=== PATIENT | female | born 1990 | race Caucasian/White ===

== ENCOUNTER 2023-04-30 10:09 | Outpatient (CLI) | payer BC ==
[2023-04-30] MEDS ORDERED: LACTATED RINGERS 1,000 ML IV SCH (11:15)
[2023-04-30 12:52] LABS: Appearance,Urine Clear (Clear); Bilirubin,Urine Negative (Negative); Blood,Urine Negative (Negative); Color,Urine Yellow; Glucose,Urine (UA) Negative (Negative); Ketones,Urine Negative (Negative); Leukocyte Esterase,Urine Small (Negative); Nitrite,Urine Negative (Negative); PH, Urine 7.5 (5.0-8.0); Protein,Urine Negative (Negative); RBC,Urine <1 /hpf (0-5); Specific Gravity,Urine 1.008 (1.001-1.035); Squamous Epithelial Cell,Urine 1 /hpf (0-4); Urobilinogen,Urine <2.0 mg/dL (<2.0); WBC,Urine 2 /hpf (0-5)
[2023-04-30 14:37] VITALS: BP 121/77; PULSE 92; RESP 16; TEMP 98.4
--- NOTE | 2023-05-01 13:25 | P.MSEPDOC ---
Presenting Problems - Arrival Data Date of Arrival on Unit: 04/30/23 Time of Arrival on Unit: 10:09 Mode of Transport: Ambulatory - Complaint OB-Reason for Admission/Chief Complaint: Possible Onset of Labor, Pain Comment: abdominal pain Medical History - Information : 1 Para: 0 Term: 0 : 0 Abortions: Spontaneous or Elective: 0 Number of Living Children: 0 - Gestational Age Gestational Age by TAHMINA (wks/days): 33 Weeks and 2 Days Review of Systems - Review of Systems Constitutional: No problems Breast: No problems ENT: No problems Cardiovascular: No problems Respiratory: No problems Gastrointestinal: No problems Genitourinary: No problems Musculoskeletal: No problems Neurological: No problems Skin: No problems Vital Signs - Temperature Temperature: 98.4 F Temperature Source: Temporal Artery Scan - Pulse Brachial Pulse Rate: 92 Pulse Assessment Method: Automatic Cuff - Respirations Respiratory Rate: 16 Oxygen Delivery Method: Room Air O2 Sat by Pulse Oximetry: 96 - Blood Pressure Right Arm Blood Pressure: 121/77 Blood Pressure Mean: 91 Blood Pressure Source: Automatic Cuff Medical Screen Scoring - Cervical Exam Dilation (cm): 0 Effacement (%): 0 Station: -4 Membranes: Intact - Uterine Contractions Frequency From (mins): 3 Frequency To (mins): 9 Duration From (seconds): 40 Duration To (seconds): 90 Intensity: Mild Resting: Soft to palpation - Assessment - Baby A Baseline FHR: 130 Heart Rate - NICHD Category: Category I (Normal) NST: Reactive Physician Notification - Physician Notified Physician Notified Date: 04/30/23 Physician Notified Time: 13:10 Physician: Eliz Flores New Order Received: Yes (discharge on pelvic rest and oral hydration) Maternal Triage Index - Urgent/Priority 2 Urgent Priority 2: Yes Provider Notified: Eliz Flores Provider Notified Time: 11:09 Criteria Met for Priority 2: less than 34 weeks contractions Disposition - Disposition OB Disposition: Triage, Discharge to home, Written follow up instructions reviewed Discharge Date: 04/30/23 Discharge Time: 13:15 I agree with the RN Medical Screening Exam: Yes Case reviewed; plan agreed upon as documented in EMR&OBIX.: Yes Diagnosis: FALSE LABOR BEFORE 37 COMPLETED WEEKS OF GEST, THIRD TRI
== END 2023-04-30 13:15 ==
LOC: FBPOP 10:09
PROVIDERS: ATTEND Obstetrics & Gynecology
DX: O47.03 False labor before 37 completed weeks of gestation, third trimester (principal); R10.84 Generalized abdominal pain; Z3A.33 33 weeks gestation of pregnancy
CPT/HCPCS: 59025; 81001; 82731; 96360; 96361; 99214

== ENCOUNTER 2023-05-21 16:20 | Outpatient (CLI) | payer BC ==
[2023-05-21 17:42] VITALS: BP 137/86; PULSE 109; RESP 18; TEMP 98.4
--- NOTE | 2023-05-21 20:20 | US ---
EXAMINATION TYPE: US OB limited DATE OF EXAM: 05/21/2023 COMPARISON: NONE CLINICAL INDICATION: Female, 32 years old with history of ISSAC; ISSAC EXAM PERFORMED: Transabdominal (TA) GESTATIONAL AGE / DATING Physician Established: (36 weeks/2 days) EDC: 06/16/2023 No growth performed on today?s study per ordering physician SURVEY ? ISSAC: 9.89 cm Ultrasound evidence of premature rupture of membranes? No (Tech?if abnormal transabdominally?image transvaginally to substantiate abnormality.) PRESENTATION: Vertex HEART RATE: 158 bpm RHYTHM: Normal IMPRESSION: 1. Limited evaluation. Fetus is in the cephalic presentation with cardiac activity measures 158 bpm. 2. ISSAC measures 9.89 centimeters
--- NOTE | 2023-05-22 09:47 | P.MSEPDOC ---
Presenting Problems - Arrival Data Date of Arrival on Unit: 05/21/23 Time of Arrival on Unit: 16:20 Mode of Transport: Portable - Complaint OB-Reason for Admission/Chief Complaint: Rule Out SROM Comment: 1554, clear gush of fluid Medical History - Information : 1 Para: 0 - Gestational Age Gestational Age by TAHMINA (wks/days): 36 Weeks and 2 Days Review of Systems - Review of Systems Constitutional: No problems Breast: No problems ENT: No problems Cardiovascular: No problems Respiratory: No problems Gastrointestinal: No problems Genitourinary: No problems Musculoskeletal: No problems Neurological: No problems Skin: No problems Vital Signs - Temperature Temperature: 98.4 F Temperature Source: Temporal Artery Scan - Pulse Pulse Oximetery Pulse Rate: 109 Pulse Assessment Method: Pulse Oximetry - Respirations Respiratory Rate: 18 Oxygen Delivery Method: Room Air - Blood Pressure Right Arm Blood Pressure: 137/86 Blood Pressure Mean: 103 Blood Pressure Source: Automatic Cuff Medical Screen Scoring - Cervical Exam Dilation (cm): 0.5 Effacement (%): 0 Membranes: Intact - Assessment - Baby A Baseline FHR: 140 Heart Rate - NICHD Category: Category I (Normal) NST: Reactive Physician Notification - Physician Notified Physician Notified Date: 05/21/23 Physician Notified Time: 17:10 Physician: Gayle Alcala - Notification Comment Comment: Spoke on the phone with Dr. Alcala about pt gush of clear fluid at 1554 and negative amnisure results. D/C orders given Maternal Triage Index - Maternal Triage Index Presenting for scheduled procedure w/no complaint: No - Stat/Priority 1 Stat Priority 1: No - Urgent/Priority 2 Urgent Priority 2: No - Prompt/Priority 3 Prompt Priority 3: Yes Criteria Met for Priority 3: Pt 36 2/7 C/o SROM Disposition - Disposition OB Disposition: Discharge to home, Written follow up instructions reviewed I agree with the RN Medical Screening Exam: Yes Case reviewed; plan agreed upon as documented in EMR&OBIX.: Yes Diagnosis: FALSE LABOR AT OR AFTER 37 COMPLETED WEEKS OF GESTATION
== END 2023-05-21 18:40 | disposition home or self-care (01) ==
LOC: FBPOP 16:20
PROVIDERS: ATTEND Obstetrics & Gynecology
DX: O47.1 False labor at or after 37 completed weeks of gestation (principal); Z3A.36 36 weeks gestation of pregnancy
CPT/HCPCS: 59025; 76815; 84112; 99213

== ENCOUNTER 2023-06-08 09:40 | Inpatient (IN) | payer BC ==
[2023-06-08] MEDS ORDERED: LIDOCAINE 0.5% (PF) 5 MG/ML (50 ML SDV) SQ PRN (10:10)
[2023-06-08] MEDS ORDERED: CARBOPROST TROMETHAMINE 250 MCG/ML 1 ML AMP IM PRN (10:10)
[2023-06-08] MEDS ORDERED: miSOPROStoL 200 MCG TAB PO PRN (10:10)
[2023-06-08] MEDS ORDERED: TRANEXAMIC 1,000 MG/100ML-NACL 1,000 MG in EMPTY BAG 1 BAG IV PRN (10:10)
[2023-06-08] MEDS ORDERED: METHYLERGONOVINE 0.2 MG/ML 1 ML AMP IM PRN (10:10)
[2023-06-08] MEDS ORDERED: TERBUTALINE 1 MG/ML VIAL SQ PRN (10:10)
[2023-06-08] MEDS ORDERED: OXYTOCIN 10 UNIT/ML 1 ML VIAL IM PRN (10:10)
[2023-06-08] MEDS ORDERED: OXYTOCIN 30 UNITS/500 ML NS 30 UNIT in SALINE 1 500ML.BAG IV SCH (10:15)
[2023-06-08] MEDS: LACTATED RINGERS 1,000 ML IV SCH ×4 (10:19→18:21)
[2023-06-08 10:29] LABS: Basophils % (A) 0 %; Eosinophils # (A) 0.2 k/uL (0-0.7); Eosinophils % (A) 2 %; HGB 14.2 gm/dL (11.4-16.0); Lymphocytes # (A) 1.9 k/uL (1.0-4.8); Lymphocytes % (A) 17 %; MCH 28.8 pg (25.0-35.0); MCHC 33.8 g/dL (31.0-37.0); MCV 85.3 fL (80.0-100.0); Mean Platelet Volume 7.8; Monocytes # (A) 0.5 k/uL (0-1.0); Monocytes % (A) 5 %; Neutrophils # (A) 8.6 k/uL (1.3-7.7); Neutrophils % (A) 76 %; Platelet Count 268 k/uL (150-450); RBC 4.92 m/uL (3.80-5.40); RDW 14.2 % (11.5-15.5); WBC 11.4 k/uL (3.8-10.6)
[2023-06-08 10:37] LABS: ALT 19 U/L (4-34); AST 28 U/L (14-36); African American GFR (CKD) >90 (>60 ml/min/1.73 sqM); Blood Urea Nitrogen 5 mg/dL (7-17); Non-African American GFR(CKD) >90 (>60 ml/min/1.73 sqM); Uric Acid 5.7 mg/dL (3.7-7.4)
[2023-06-08 10:44] LABS: Amorphous Sediment,Urine Rare /hpf; Appearance,Urine Clear (Clear); Bilirubin,Urine Negative (Negative); Blood,Urine Large (Negative); Color,Urine Yellow; Creatinine,Urine Random 73.9 mg/dL; Glucose,Urine (UA) Negative (Negative); Granular Casts,Urine 1 /lpf (0); Ketones,Urine Negative (Negative); Leukocyte Esterase,Urine Large (Negative); Mucus,Urine Rare /hpf; Nitrite,Urine Negative (Negative); Protein,Urine Trace (Negative); Protein/Creatinine Ratio,Urine 0.365; RBC,Urine 88 /hpf (0-5); Specific Gravity,Urine 1.011 (1.001-1.035); Squamous Epithelial Cell,Urine 1 /hpf (0-4); Urobilinogen,Urine <2.0 mg/dL (<2.0); WBC,Urine 30 /hpf (0-5)
[2023-06-08] MEDS ORDERED: ROPIVACAINE 5 MG/ML 30 ML VIAL ONE (11:06)
[2023-06-08] MEDS ORDERED: SODIUM CHLORIDE 0.9% 250 ML BAG ONE (11:06)
[2023-06-08] MEDS ORDERED: fentaNYL (PF) 50 MCG/ML 5 ML AMP ONE (11:06)
[2023-06-08] MEDS ORDERED: CITRIC ACID-SODIUM CITRATE 15 ML CUP PO ONE (16:07)
[2023-06-08] MEDS ORDERED: NALBUPHINE 10 MG/ML (10 ML MDV) IV PRN (17:11)
[2023-06-08] MEDS ORDERED: ONDANSETRON 4 MG/2 ML VIAL IVP PRN ×2 (17:11→17:16)
[2023-06-08] MEDS ORDERED: NALOXONE 0.4 MG/ML 1 ML VIAL IV PRN ×2 (17:11→17:16)
--- NOTE | 2023-06-08 17:11 | P.ANPRN ---
Procedure Note - Anesthesia - Epidural/Spinal Epidural Date of Procedure: 06/08/23 Location of Patient: OR Indication: Acute Post-Operative Pain, Requested by Surgeon Blood Aspirated: No Pain Paresthesia on Injection Noted: No Events: Uneventful and Well Tolerated (through epidural-3 mg of preservative- free morphine was given for postoperative pain control)
[2023-06-08] MEDS ORDERED: diphenhydrAMINE 25 MG CAP PO PRN (17:16)
[2023-06-08] MEDS ORDERED: HYDROmorphone PCA 10 MG/50 ML BAG IV PRN (17:16)
[2023-06-08] MEDS ORDERED: diphenhydrAMINE 50 MG CAP PO PRN (17:16)
[2023-06-08] MEDS ORDERED: HYDROmorphone 1 MG/ML 1 ML SYRINGE IVP PRN (17:16)
[2023-06-08] MEDS ORDERED: SIMETHICONE 80 MG CHEWABLE PO PRN (17:16)
[2023-06-08] MEDS ORDERED: LANOLIN CREAM 5 GM TUBE TOPICAL PRN (17:16)
[2023-06-08] MEDS ORDERED: METOCLOPRAMIDE 5 MG/ML 2 ML VIAL IVP PRN (17:16)
[2023-06-08] MEDS ORDERED: diphenhydrAMINE 50 MG/ML 1 ML VIAL IVP PRN ×2 (17:16)
[2023-06-08] MEDS ORDERED: ZOLPIDEM 5 MG TAB PO PRN (17:16)
[2023-06-08] MEDS ORDERED: HYDROmorphone 0.5 MG/0.5 ML SYRINGE IVP PRN (17:16)
--- NOTE | 2023-06-08 17:25 | P.HPOB ---
History of Present Illness H&P Date: 06/08/23 Chief Complaint: Contractions This is a 32-year-old female 1 para 0 with an estimated date of confinement of 06/16/2023, estimated gestational age of 38-6/7 weeks who was seen in the office this morning and found to be 6 cm. She is stated she had been feeling contractions since the night before. care has been with Dr. lAcala and has been uncomplicated per patient. labs: GBS-negative One hour Glucola-155 Three-hour Glucola-within normal limits GC/chlamydia/Trichomonas-negative Blood type-O+ Antibody screen-negative Hemoglobin-14.3 Toxoplasma-negative RPR-nonreactive HIV-nonreactive Toxoplasma-negative Hepatitis C virus-negative Random glucose-98 Hepatitis B surface antigen-negative Obstetrical history-. Review of Systems Constitutional: Denies chills, Denies fever Eyes: denies blurred vision, denies pain Ears, nose, mouth and throat: Denies headache, Denies sore throat Cardiovascular: Denies chest pain, Denies shortness of breath Respiratory: Denies cough Gastrointestinal: Reports abdominal pain (Contractions) Genitourinary: Reports pelvic pain, Reports Musculoskeletal: Reports low back pain Integumentary: Denies pruritus, Denies rash Neurological: Denies numbness, Denies weakness Psychiatric: Denies anxiety, Denies depression Past Medical History Additional Past Medical History / Comment(s): scoliosis History of Any Multi-Drug Resistant Organisms: None Reported Past Surgical History: Orthopedic Surgery Additional Past Surgical History / Comment(s): wisdon teeth Past Psychological History: Anxiety, Depression Smoking Status: Never smoker Past Alcohol Use History: None Reported Past Drug Use History: None Reported - Past Family History Mother Family Medical History: No Reported History Father Additional Family Medical History / Comment(s): alcoholism, depression Medications and Allergies Home Medications Medication Instructions Recorded Confirmed Type Vit No.179/Iron/Folic 1 tab PO DAILY 06/08/23 06/08/23 History [ Tablet] Allergies Allergy/AdvReac Type Severity Reaction Status Date / Time No Known Allergies Allergy Verified 06/08/23 10:09 Exam Osteopathic Statement: *. No significant issues noted on an osteopathic structural exam other than those noted in the History and Physical/Consult. Vital Signs Temp Pulse Resp BP Pulse Ox 06/08/23 10:21 97.5 F L 88 16 144/97 98 Intake and Output 06/08/23 06/08/23 06/08/23 06:59 14:59 22:59 Other: Weight 91.172 kg HEENT: Within normal limits Heart: Regular rate and rhythm Lungs: Clear to auscultation bilaterally Abdomen: Cervix: Initially 6 cm/70%/-2 station heart tones: 140s with accelerations and moderate variability on arrival. Contractions: Irregular Extremities: Negative Homans Results Result Diagrams: 06/08/23 10:23 06/08/23 10:23 Abnormal Lab Results - Last 24 Hours (Table) 06/08/23 06/08/23 06/08/23 Range/Units 10: 10: 10: WBC 11.4 H (3.8-10.6) k/uL Neutrophils # 8.6 H (1.3-7.7) k/uL BUN 5 L (7-17) mg/dL Urine Protein Trace H (Negative) Urine Blood Large H (Negative) Ur Leukocyte Esterase Large H (Negative) Urine RBC 88 H (0-5) /hpf Urine WBC 30 H (0-5) /hpf Amorphous Sediment Rare H (None) /hpf Urine Mucus Rare H (None) /hpf Assessment and Plan (1) 38 weeks gestation of Current Visit: Yes Status: Acute Code(s): Z3A.38 - 38 WEEKS GESTATION OF SNOMED Code(s): 26859879 Plan: Admission for active labor. Epidural anesthesia. Oxytocin augmentation of labor if necessary.
[2023-06-08] MEDS ORDERED: hydrALAZINE HCL 20 MG/ML 1 ML VIAL IVP PRN (18:21)
[2023-06-08] MEDS ORDERED: CALCIUM GLUCONATE 1 GM/10 ML VIAL IV PRN (18:21)
[2023-06-08] MEDS ORDERED: MAGNESIUM SULFATE GM 6 GM in SODIUM CHLORIDE 0.9% 100 ML IVPB ONE (18:21)
[2023-06-08] MEDS ORDERED: LABETALOL 5 MG/ML VIAL MDV IVP PRN ×3 (18:21)
--- NOTE | 2023-06-08 18:21 | P.OP ---
Date of Procedure: 06/08/23 Preoperative Diagnosis: 1. Intrauterine at 38-6/7 weeks. 2. bradycardia. Postoperative Diagnosis: Same Procedure(s) Performed: Primary low transverse section Anesthesia: epidural (Duramorph) Surgeon: Eliz Flores Casting Wheel Operator #1: Mandy Rhodes Estimated Blood Loss (ml): 500 Pathology: other (Placenta) Condition: stable Disposition: floor Indications for Procedure: This is a 32-year-old female 1 para 0 at 38-6/7 weeks who presented in active labor this morning. She had 2 previous episodes of bradycardia with slow return to baseline down to the 80s each time. She reached complete dilation and started pushing and then also came down to the 80s again with slow return to baseline. scalp electrode was placed and the patient was advised at this time that a section is necessary due to her continued decelerations. The patient centered huddle was carried out and patient and her family agreed to proceed with urgent section. I have discussed the risks, benefits, and alternative therapies for the above- mentioned procedure and for both sedation/anesthesia as well as necessary blood products administration, if indicated, as they pertain to this patient. The patient has indicated her understanding and acceptance of the risks and procedures discussed. Operative Findings: A viable male is noted in the occiput posterior lie with scores of 8 at 1 minute and 9 at 5 minutes. Normal uterus tubes and ovaries are noted. Description of Procedure: The patient is taken to the operating room where she is placed in the dorsal supine position with leftward tilt after epidural anesthesia is bolused. scalp electrode was continued Until Anesthesia Was Adequate and Then It Was Removed. She is prepped and draped in the normal sterile fashion. Skin was tested and found to be adequately anesthetized. A Pfannenstiel skin incision was made with a scalpel. A second knife was used to carry the incision down to the underlying layer of fascia. The fascia was nicked in the midline with a scalpel and then extended laterally bilaterally with Myers scissors. The anterior lip of the fascia was grasped with 2 Racquel clamps and then dissected off the underlying rectus muscle in the midline with Myers scissors. The inferior aspect of the fascial incision was grasped with 2 Racquel clamps and dissected off the underlying rectus muscle and the midline with Myers scissors. Next the peritoneum layer was tented up with 2 hemostats and then entered sharply with the scalpel. The incision is extended superiorly and inferiorly with Metzenbaum scissors. Next a DeLee retractor is placed. The vesicouterine peritoneum is entered sharply with Metzenbaum scissors and extended laterally bilaterally with Metzenbaum scissors and then the bladder flap is pushed inferiorly. The lower uterine segment is incised in transverse fashion with the scalpel and then bluntly entered with a hemostat. Clear fluid is noted. The incision was then extended laterally bilaterally with 2 fingers. Next the 's head is delivered in occiput posterior lie through the incision. Nose and mouth are bulb suctioned. There was noted to be a large amount of cord sitting over the baby's chest but not around the neck. The remainder of the is easily delivered and placed on mother's abdomen. Cord is clamped and cut. is taken to warmer by nursing staff. Uterine fundus is gently massaged and placenta is delivered manually. Uterus is exteriorized and cleared of all clots and debris. Uterine incision is closed with 0 Vicryl suture in a running locked fashion. A second layer of 0 Vicryl suture is used in a running fashion for hemostasis. Once adequate hemostasis as assured, the vesicouterine peritoneum is reapproximated with 2-0 Vicryl suture in a running fashion. Posterior cul-de-sac is suctioned of all clots and debris. Uterus is returned to the abdomen. Incision is noted to be hemostatic. Peritoneal layer is closed with 0 Vicryl suture in a running fashion. Muscle layer is reapproximated with 0 Vicryl suture in interrupted fashion. Fascia layer is then closed with 0 PDS suture with 2 sutures meeting in the midline and the knots buried in either side and in the midline. The subcutaneous tissue was then closed with 2-0 Vicryl suture. Skin layer was then closed with nila. All sponge and needle counts are correct. The patient is taken to recovery room in stable condition.
[2023-06-08] MEDS: MAGNESIUM SULFATE-WATER PMX 20 GM in WATER FOR INJECTION 1 500ML.BAG IV SCH (19:11)
[2023-06-08] MEDS: ACETAMINOPHEN IV (For NPO) 1,000 MG in EMPTY BAG 1 BAG IVPB SCH (19:59)
[2023-06-08] MEDS: KETOROLAC 15 MG/ML 1 ML VIAL IVP SCH (23:06)
[2023-06-09] MEDS: SENNOSIDES-DOCUSATE SODIUM 1 EACH TAB PO SCH ×3 (01:41→20:15)
[2023-06-09] MEDS: ACETAMINOPHEN TAB 500 MG TAB PO SCH ×5 (02:04→20:15)
[2023-06-09] MEDS: KETOROLAC 15 MG/ML 1 ML VIAL IVP SCH ×4 (04:31→23:44)
[2023-06-09] MEDS: LACTATED RINGERS 1,000 ML IV SCH ×4 (04:32→17:01)
[2023-06-09] MEDS: MAGNESIUM SULFATE-WATER PMX 20 GM in WATER FOR INJECTION 1 500ML.BAG IV SCH ×2 (04:32→19:52)
[2023-06-09 06:36] LABS: Basophils % (A) 0 %; Eosinophils # (A) 0.1 k/uL (0-0.7); Eosinophils % (A) 1 %; HCT 32.9 % (34.0-46.0); HGB 11.4 gm/dL (11.4-16.0); Lymphocytes % (A) 16 %; MCH 30.1 pg (25.0-35.0); MCHC 34.7 g/dL (31.0-37.0); MCV 86.8 fL (80.0-100.0); Mean Platelet Volume 7.8; Monocytes # (A) 0.6 k/uL (0-1.0); Monocytes % (A) 4 %; Neutrophils # (A) 9.7 k/uL (1.3-7.7); Neutrophils % (A) 77 %; Platelet Count 226 k/uL (150-450); RBC 3.79 m/uL (3.80-5.40); RDW 14.3 % (11.5-15.5); WBC 12.5 k/uL (3.8-10.6)
--- NOTE | 2023-06-09 06:40 | P.PN ---
Progress Note - Text Progress Note Date: 06/09/23 is a 32-year-old female had a history of under epidural. Patient received Astramorph 3mg at the end of the procedure for postoperative pain control. Today patient is comfortable sitting in her bed. Today patient rated her pain level 1 out of 10 in severity. Denied any fever, drowsiness, confusion. Denied any weakness, tingling sensation in her lower extremities. Denied any bowel or bladder problems. Moving all extremities without any difficulty, and able to walk without any difficulties. She is complaining of mild itching. As per patient which is bearable. Vitals: Hemodynamically stable Continue oral pain medication as per primary team. No complications related to anesthesia.
[2023-06-09] MEDS: ACETAMINOPHEN IV (For NPO) 1,000 MG in EMPTY BAG 1 BAG IVPB SCH (08:43)
[2023-06-09] MEDS: IBUPROFEN 600 MG TAB PO SCH ×5 (08:44→23:35)
--- NOTE | 2023-06-09 12:43 | P.PNOBGPC ---
Subjective - Subjective Principal diagnosis: status post primary low transverse postop day 1 Interval history: Patient seen and examined. Denies nausea, vomiting, chest pain, shortness of breath or calf pain. She does have a slight headache and some double vision. I'm going to turn her magnesium sulfate down to 1 g an hour to see if that improves her symptoms. Patient reports: Reports appetite normal, Reports pain well controlled Prospect: doing well Objective - Vital Signs Latest vital signs: Vital Signs Temp Pulse Resp BP Pulse Ox 06/09/23 11:00 93 16 135/87 100 06/09/23 10:03 93 16 132/83 98 06/09/23 09:02 81 16 131/87 100 06/09/23 08:00 96.7 F L 90 16 148/89 100 06/09/23 07:00 85 133/88 100 06/09/23 06:00 86 17 131/88 100 06/09/23 05:00 90 142/77 100 06/09/23 04:00 80 17 126/75 100 06/09/23 03:00 88 17 133/87 99 06/09/23 02:00 87 17 136/84 100 06/09/23 01:00 80 17 131/86 100 06/09/23 00:00 97.0 F L 81 17 139/82 97 06/08/23 23:00 87 17 131/86 96 06/08/23 22:08 99 06/08/23 22:00 83 17 130/87 99 06/08/23 21:00 74 17 141/90 96 06/08/23 20:11 96 17 137/90 96 06/08/23 20:00 95 17 137/91 96 06/08/23 19:02 96 16 149/99 98 06/08/23 18:02 90 16 150/96 100 06/08/23 17:47 88 16 144/93 100 06/08/23 17:32 93 16 148/88 100 06/08/23 17:17 91 16 141/84 100 06/08/23 17:02 97.3 F L 94 16 131/78 99 Intake and Output 06/08/23 06/09/23 06/09/23 22:59 06:59 14:59 Intake Total 875 1592.5 858.333 Output Total 1800 1750 1250 Balance -925 -157.5 -391.667 Intake: IV 875 1125 500 Lactated Ringers 1,000 ml 225 675 300 @ 125 mls/hr IV .Q8H ASHLI Rx#:[id number] Magnesium Sulfate-Water 150 450 200 Pmx 20 gm In Water For Injection 1 500ml.bag @ 2 GM/HR 50 mls/hr IV .Q10H ASHLI Rx#:[id number] Intake, IV Titration 467.5 358.333 Amount Magnesium Sulfate-Water 467.5 358.333 Pmx 20 gm In Water For Injection 1 500ml.bag @ 2 GM/HR 50 mls/hr IV .Q10H A[facility]LI Rx#:[id number] Output: Urine 1150 1750 1250 Output, Quantitative 650 Blood Loss Other: Voiding Method Indwelling Catheter Indwelling Catheter - Exam Lungs: bilateral: normal Chest: Normal S1, Normal S2 Extremities: Present: normal Abdomen: Present: normal appearance, soft. Absent: distention, tenderness Incision: Present: normal, dry, intact Uterus: Present: normal, firm - Labs Labs: Abnormal Lab Results - Last 24 Hours (Table) 06/09/23 Range/Units 05:52 WBC 12.5 H (3.8-10.6) k/uL RBC 3.79 L (3.80-5.40) m/uL Hct 32.9 L (34.0-46.0) % Neutrophils # 9.7 H (1.3-7.7) k/uL Assessment and Plan (1) Status post primary low transverse section Current Visit: Yes Status: Acute Code(s): Z98.891 - HISTORY OF UTERINE SCAR FROM PREVIOUS SURGERY SNOMED Code(s): 545975139 (2) Preeclampsia Current Visit: Yes Status: Acute Code(s): O14.90 - UNSPECIFIED PRE-ECLAM PSIA, UNSPECIFIED TRIMESTER SNOMED Code(s): 303812245 Plan: 1. Magnesium sulfate to 1 g an hour 2. Magnesium sulfate off at 24 hours 3. Advanced diet
[2023-06-10] MEDS: LACTATED RINGERS 1,000 ML IV SCH (03:50)
[2023-06-10] MEDS: ACETAMINOPHEN TAB 500 MG TAB PO SCH ×2 (04:11→10:58)
[2023-06-10] MEDS: IBUPROFEN 600 MG TAB PO SCH (07:00)
[2023-06-10] MEDS: KETOROLAC 15 MG/ML 1 ML VIAL IVP SCH ×2 (07:01→12:51)
--- NOTE | 2023-06-10 08:16 | P.DS ---
Providers Date of admission: 06/08/23 09:40 Expected date of discharge: 06/10/23 Attending physician: Gayle Alcala Primary care physician: Stated None - Discharge Diagnosis(es) (1) Status post primary low transverse section Current Visit: Yes Status: Acute (2) Preeclampsia Current Visit: Yes Status: Acute Hospital Course: Patient presented in labor with elevated blood pressures. She underwent a primary low transverse for category 3 heart tones. Her postoperative course has been uneventful. She was on magnesium sulfate for the first 24 hours. Blood pressures have been 130s over 80s since coming off the magnesium. Patient denies headache, vision changes, nausea or right upper quadrant pain. She will be discharged home postoperative day #2 in stable condition to follow- up with me in one week. Plan - Discharge Summary New Discharge Prescriptions: New Ibuprofen [Motrin] 600 mg PO Q6HR PRN #30 tab PRN Reason: Mild Pain Or Fever >= 100.5 No Action Vit No.179/Iron/Folic [ Tablet] 1 tab PO DAILY Discharge Medication List Vit No.179/Iron/Folic [ Tablet] 1 tab PO DAILY 06/08/23 [History] Ibuprofen [Motrin] 600 mg PO Q6HR PRN #30 tab 06/10/23 [Rx] Follow up Appointment(s)/Referral(s): Gayle Alcala DO [Doctor of Osteopathic Medicine] - 07/20/23 10:45 am (Post Op Appointment 06-18-2023 at 1:30) Discharge Disposition: HOME SELF-CARE
[2023-06-10 09:28] VITALS: BP 135/87; PULSE 91; RESP 18; TEMP 98.5
[2023-06-10] MEDS: SENNOSIDES-DOCUSATE SODIUM 1 EACH TAB PO SCH (10:57)
== END 2023-06-10 14:38 | disposition home or self-care (01) | DRG 786 ==
LOC: 4FBP 09:40
PROVIDERS: ADMIT Obstetrics & Gynecology; ATTEND Obstetrics & Gynecology
PROC: 10D00Z1 Extraction of Products of Conception, Low, Open Approach (ICD-10-PCS; principal; 2023-06-08)
DX: O76 Abnormality in fetal heart rate and rhythm complicating labor and delivery (principal); O15.1 Eclampsia complicating labor; O14.94 Unspecified pre-eclampsia, complicating childbirth; M41.9 Scoliosis, unspecified; F41.9 Anxiety disorder, unspecified; F32.A Depression, unspecified; O99.344 Other mental disorders complicating childbirth; Z37.0 Single live birth; Z3A.38 38 weeks gestation of pregnancy; Z81.8 Family history of other mental and behavioral disorders
CPT/HCPCS: 81001; 82565; 82570; 83615; 84156; 84450; 84460; 84520; 84550; 85025; 86850; 86900; 86901; 88307